=== PATIENT | female | born 1940 | race Caucasian/White ===

== ENCOUNTER 2018-11-14 08:07 | Day surgery (SDC) | payer MEDICARE, OTHER ==
[~2018-11-14 08:07] MED LIST: ACETAMINOPHEN 325 MG TAB PO; MIDAZOLAM INJ 2 MG/2 ML VIAL (J2250) As Ordered; PHENYLEPHRINE HCL 10 % OPHTH. SOL 5ML OS; PROPARACAINE 0.5% OPHTH SOL 15ML OS; fentaNYL 100 MCG/2 ML INJECTION (J3010) As Ordered
[2018-11-14] MEDS: CYCLOPENTOLATE 2% OPHTH SOLN 2ML BTL OS (09:21)
[2018-11-14] MEDS: TROPICAMIDE 1% OPHTH SOLN 2ML OS (09:21)
[2018-11-14] MEDS: LIDOCAINE 3.5 % 1ML OPHTH TOPICAL GEL OU (09:21)
[2018-11-14] MEDS: PHENYLEPHRINE 2.5% OPHTH SOL 2ML OS (09:21)
[2018-11-14] MEDS: OFLOXACIN 0.3 % (OCUFLOX) OPTH SOL 5ML OS (09:21)
[2018-11-14] MEDS: POVIDONE-IODINE 5% OPHTH PREP SOL 30ML As Ordered (10:28)
[2018-11-14] MEDS: CEFUROXIME 1MG/0.1ML INTRACAMERAL INJ As Ordered (10:31)
[2018-11-14] MEDS: BALANCED SALT IRRIGATION SOLUTION 500ML BAG (FOR OR EYE MACHINE) As Ordered (10:31)
[2018-11-14] MEDS: LIDOCAINE 1% SDV 5 ML VIAL As Ordered (10:31)
[2018-11-14] MEDS: HEALON DUET PRO(HEALON 10MG/ML 0.55ML & HEALON ENDOCOAT 30MG/ML 0.85ML) As Ordered (10:31)
[2018-11-14] MEDS: KETOROLAC 0.5% OPHTH SOLN OS (10:55)
[2018-11-14] MEDS ORDERED: TRIMETHOBENZAMIDE 300 MG CAP PO (11:00)
[2018-11-14] MEDS ORDERED: ONDANSETRON 4MG/2ML VIAL (J2405) IV (11:00)
[2018-11-14] MEDS: AcetaZOLAMIDE 500 MG ER CAP PO (11:03)
== END 2018-11-14 11:17 | disposition home or self-care (01) ==
LOC: M SDC 08:07
DX: H25.12 Age-related nuclear cataract, left eye (principal); I48.91 Unspecified atrial fibrillation; E78.00 Pure hypercholesterolemia, unspecified; Z79.899 Other long term (current) drug therapy; Z78.0 Asymptomatic menopausal state; Z98.51 Tubal ligation status; Z98.41 Cataract extraction status, right eye; Z87.891 Personal history of nicotine dependence
CPT/HCPCS: 66984